=== PATIENT | female | born 1985 | race Hispanic/Latino ===

== ENCOUNTER 2022-05-10 08:50 | Outpatient (CLI) | payer OTHER ==
[2022-05-10] MEDS ORDERED: Iopamidol 370 76% 100 ML VIAL ONE (09:50)
== END 2022-05-10 08:51 | disposition home or self-care (01) ==
LOC: CT 08:50
PROVIDERS: ATTEND Obstetrics & Gynecology
DX: Z08 Encounter for follow-up examination after completed treatment for malignant neoplasm (principal); M89.9 Disorder of bone, unspecified; Z85.41 Personal history of malignant neoplasm of cervix uteri; R93.2 Abnormal findings on diagnostic imaging of liver and biliary tract; Z90.710 Acquired absence of both cervix and uterus
CPT/HCPCS: 71046; 74177; Q9967

== ENCOUNTER 2022-06-02 08:46 | Outpatient (CLI) | payer OTHER | END 2022-06-02 08:47 | disposition home or self-care (01) | LOC: NM 08:46 | PROVIDERS: ATTEND Obstetrics & Gynecology | DX: M89.9 Disorder of bone, unspecified (principal) | CPT/HCPCS: 78306; A9503 ==

== ENCOUNTER 2023-03-23 14:04 | Outpatient (CLI) | payer OTHER | END 2023-03-23 14:05 | disposition home or self-care (01) | LOC: BICMAMMO 14:04 | PROVIDERS: ATTEND Obstetrics & Gynecology | DX: R92.2 Inconclusive mammogram (principal) | CPT/HCPCS: G0279 ==